=== PATIENT | male | born 1940 | race Caucasian/White ===

== ENCOUNTER 2019-06-20 21:40 | Emergency (ER) | payer MEDICARE ==
[~2019-06-20] VITALS: Ht 180.3 cm; Wt 73.7 kg
[~2019-06-20 21:40] MED LIST: ALBU0.63 NEB; ALPR1TAB7; ATEN50TA8; ATOR-2; CARI350T PO; CITA20TA27; DOCU-28 PO; ESOM40CA2; FLO0.4C PO; FLUT1DIS4 INH; FURO40TA4; HYDR-3972; MORP60TA77; MSC15T PO; POTA8CAP20; SULF1TAB49 PO
[2019-06-20 21:47] VITALS: BP 124/81
[2019-06-20 22:26] LABS: BASOPHILS % (AUTO) 0.3 % (0-1); EOSINOPHILS # (AUTO) 0.1 X10'3 (0-0.9); EOSINOPHILS % (AUTO) 0.6 % (0-6); HEMATOCRIT 41.3 % (42.0-52.0); HEMOGLOBIN 14.5 g/dl (14.0-17.9); LYMPHOCYTES # (AUTO) 1.9 X10'3 (1.1-4.8); MEAN CORPUSCULAR HEMOGLOBIN 33.6 PG (27.0-31.0); MEAN PLATELET VOLUME 7.8 FL (7.4-10.4); MONOCYTES # (AUTO) 0.5 X10'3 (0-0.9); MONOCYTES % (AUTO) 5.6 % (2-12); NEUTROPHILS % (AUTO) 73.5 % (42-75); PLATELET COUNT 192 X10'3 (140-440); RED BLOOD COUNT 4.31 X10'6 (4.70-6.10); RED CELL DISTRIBUTION WIDTH 13.2 % (11.5-14.5); WHITE BLOOD COUNT 9.5 X10'3 (4.5-11.0)
[2019-06-20 22:33] LABS: ALANINE AMINOTRANSFERASE 22 U/L (12-78); ALBUMIN 3.6 G/DL (3.4-5.0); ALBUMIN/GLOBULIN RATIO 0.9 (1.1-1.5); ALKALINE PHOSPHATASE 115 IU/L (46-116); ANION GAP 6 (8-16); ASPARTATE AMINO TRANSFERASE 17 U/L (10-37); BILIRUBIN,TOTAL 0.8 MG/DL (0.1-1.0); BLOOD UREA NITROGEN 11 MG/DL (7-18); BUN/CREATININE RATIO 12.5 (5.4-32.0); CALCIUM 9.5 MG/DL (8.5-10.1); CHLORIDE 95 MMOL/L (99-107); CREATININE 0.88 MG/DL (0.60-1.10); GLUCOSE 103 MG/DL (70-104); POTASSIUM 3.4 MMOL/L (3.5-5.1); SODIUM 134 MMOL/L (135-145); TOTAL CARBON DIOXIDE 33.2 MMOL/L (24-32); TOTAL PROTEIN 7.6 G/DL (6.4-8.2); eGFR 84 ML/MIN
[2019-06-20 23:25] LABS: CLARITY,URINE SLIGHTLY CLOUDY (Clear); COLOR,URINE YELLOW (Yellow); GLUCOSE, URINE NEGATIVE (Neg); KETONES,URINE NEGATIVE (Neg); LEUKOCYTE ESTERASE ,URINE MODERATE (Neg); NITRITES, URINE POSITIVE (Neg); OCCULT BLOOD,URINE TRACE-INTACT (Neg); PROTEIN,URINE NEGATIVE (Neg); UROBILINOGEN,URINE 0.2 E.U/dL (0.2-1.0)
[2019-06-20 23:32] LABS: UA COLLECTION TYPE CLN CATCH MIDSTREAM
[2019-06-20 23:33] LABS: BACTERIA,URINE 4+ /HPF (Neg); RBC,URINE 0-2 /HPF (0-2); SQUAMOUS EPITHELIAL CELL,UR FEW /LPF (FEW); WBC CLUMPS,URINE FEW /HPF (NEGATIVE)
[2019-06-20] MEDS ORDERED: CefTRIAXone 2gm/D5W 50ml 50 ML IV ONE (23:40)
[2019-06-21] MEDS ORDERED: normal saline 1000ML IV soln IVB ONE (00:15)
[2019-06-21] MEDS ORDERED: magnesium citrate 296ml oral solution PO ONE (00:15)
[2019-06-21] MEDS ORDERED: CEPH-572 PO (00:47)
[2019-06-22] MEDS ORDERED: CEPH-572 PO (10:49)
--- NOTE | 2019-06-22 10:52 | NUR ---
PT CAME IN STATING THAT HE NEVER RECEIVED HIS RX FOR UTI SYMPTOMS AND THAT IT WAS NOT CALLED INTO HIS PHARMACY. EXPLAINED TO PT THAT WE DO NOT CALL IN RX AND THAT IT WAS MOST LIKELY ATTACHED TO HIS DC PAPERS. PT INSISTS THAT HE EVER RECEIVED DC PAPERS. DR MACIAS REPRINTED THE PT'S RX, AND ATTEMPTED TO GIVE IT TO THE PT BUT THE PT WAS NOT IN THE ER LOBBY OR OUT SIDE. CALL WAS MADE TO PT'S PHONE # AND INFORMED THAT A NEW RX WAS AT THE ADMITTING DESK SHOULD HE LIKE TO RETURN AND GET IT.
== END 2019-06-21 01:54 | disposition home or self-care (01) ==
LOC: ER 21:41
DX: N39.0 Urinary tract infection, site not specified (principal); K59.00 Constipation, unspecified; I71.4 Abdominal aortic aneurysm, without rupture; I25.10 Atherosclerotic heart disease of native coronary artery without angina pectoris; E78.00 Pure hypercholesterolemia, unspecified; I10 Essential (primary) hypertension; J44.9 Chronic obstructive pulmonary disease, unspecified; K21.9 Gastro-esophageal reflux disease without esophagitis; G89.29 Other chronic pain; F41.9 Anxiety disorder, unspecified; F10.99 Alcohol use, unspecified with unspecified alcohol-induced disorder; F17.210 Nicotine dependence, cigarettes, uncomplicated; Z95.1 Presence of aortocoronary bypass graft; Z98.890 Other specified postprocedural states; Z88.5 Allergy status to narcotic agent; Z88.8 Allergy status to other drugs, medicaments and biological substances; Z79.899 Other long term (current) drug therapy; Y90.9 Presence of alcohol in blood, level not specified
CPT/HCPCS: 36415; 74176; 80053; 81001; 85025; 85610; 87077; 87088; 87186; 96365; 99284; J0696; J7030; 99283

== ENCOUNTER 2021-06-16 10:56 | Inpatient (IN) | payer MEDICARE, OTHER ==
[~2021-06-16] VITALS: Ht 177.8 cm; Wt 59.1 kg
[~2021-06-16 10:56] MED LIST changes: +CEPH-572 PO
[2021-06-16 12:44] LABS: CLARITY,URINE CLEAR (Clear); GLUCOSE, URINE NEGATIVE (Neg); KETONES,URINE TRACE mg/dl (Neg); LEUKOCYTE ESTERASE ,URINE NEGATIVE (Neg); NITRITES, URINE NEGATIVE (Neg); OCCULT BLOOD,URINE NEGATIVE (Neg); PH,URINE 5.5 (4.8-8.0); PROTEIN,URINE TRACE mg/dl (Neg)
[2021-06-16 12:48] LABS: COLOR,URINE DARK YELLOW (Yellow); UA COLLECTION TYPE FOLEY CATH
[2021-06-16 12:52] LABS: AMORPHOUS URATES 1+; BACTERIA,URINE NONE SEEN /HPF (Neg); RBC,URINE NONE SEEN /HPF (0-2); RENAL CELLS, URINE FEW /HPF; SQUAMOUS EPITHELIAL CELL,UR NONE SEEN /LPF (FEW); WBC,URINE 0-4 /HPF (0-4)
[2021-06-16 12:53] LABS: FINE GRANULAR CAST 0-3 /LPF (NEGATIVE); HYALINE CASTS 0-3 /LPF (NEGATIVE); MUCUS STRANDS MODERATE /LPF (Neg)
[2021-06-16 12:56] LABS: BASOPHILS % (AUTO) 0 % (0-1); EOSINOPHILS % (AUTO) 0.1 % (0-6); HEMOGLOBIN 13.7 g/dl (14.0-17.9); LYMPHOCYTES # (AUTO) 0.3 X10'3 (1.1-4.8); LYMPHOCYTES % (AUTO) 4.4 % (21-51); MEAN CORPUSCULAR HEMOGLOBIN 33.8 PG (27.0-31.0); MEAN CORPUSCULAR HGB CONC 33.4 g/dL (33.0-36.5); MEAN CORPUSCULAR VOLUME 101.3 FL (78-98); MONOCYTES # (AUTO) 0.3 X10'3 (0-0.9); MONOCYTES % (AUTO) 3.9 % (2-12); NEUTROPHILS # (AUTO) 6.3 X10'3 (1.8-7.7); NEUTROPHILS % (AUTO) 91.6 % (42-75); PLATELET COUNT 245 X10'3 (140-440); RED BLOOD COUNT 4.05 X10'6 (4.70-6.10); RED CELL DISTRIBUTION WIDTH 14.6 % (11.5-14.5); WHITE BLOOD COUNT 6.9 X10'3 (4.5-11.0)
[2021-06-16 13:15] LABS: ALANINE AMINOTRANSFERASE 17 U/L (12-78); ALBUMIN 2.8 G/DL (3.4-5.0); ALBUMIN/GLOBULIN RATIO 0.7 (1.1-1.5); ALKALINE PHOSPHATASE 97 IU/L (46-116); ANION GAP 5 (8-16); ASPARTATE AMINO TRANSFERASE 17 U/L (10-37); BLOOD UREA NITROGEN 21 MG/DL (7-18); BUN/CREATININE RATIO 25.3 (5.4-32.0); CALCIUM 9.2 MG/DL (8.5-10.1); CHLORIDE 99 MMOL/L (99-107); CREATININE 0.83 MG/DL (0.60-1.10); GLUCOSE 91 MG/DL (70-104); MAGNESIUM 2.1 MG/DL (1.5-2.4); PHOSPHORUS 2.1 MG/DL (2.3-4.5); SODIUM 143 MMOL/L (135-145); TOTAL CARBON DIOXIDE 38.6 MMOL/L (24-32); eGFR 89 ML/MIN
[2021-06-16 13:22] LABS: POTASSIUM 2.6 MMOL/L (3.5-5.1)
[2021-06-16] MEDS ORDERED: POTASSIUM BICARB 20meq eff tab 20 MEQ TABLET.EFF PO SCH (13:30)
--- NOTE | 2021-06-16 13:54 | NUR ---
[facility]
[2021-06-16] MEDS ORDERED: mag hydrox/Alum hydrox/simeth 30ml oral suspension PO PRN (14:20)
[2021-06-16] MEDS ORDERED: albuterol 2.5 MG/3 ML nebule NEB PRN (14:20)
[2021-06-16] MEDS ORDERED: ipratropium/albuterol 3ml nebule NEB PRN (14:20)
[2021-06-16] MEDS ORDERED: ondansetron/PF 4mg/2ml inj IV PRN (14:20)
[2021-06-16] MEDS ORDERED: acetaminophen 325mg tablet PO PRN (14:20)
[2021-06-16] MEDS ORDERED: metoclopramide 5 mg/ml inj IV PRN (14:20)
[2021-06-16] MEDS ORDERED: hyoscyamine 0.125mg TAB.SUBL SL PRN (14:50)
[2021-06-16] MEDS ORDERED: LORazepam 2 mg/ml vial IV PRN ×2 (14:50)
[2021-06-16] MEDS ORDERED: HYDROmorphone inj. 0.5 MG/0.5 ML DISP.SYRIN IV PRN (14:50)
[2021-06-16] MEDS ORDERED: HYDROmorphone 1 mg/ml syringe IV PRN (14:50)
--- NOTE | 2021-06-16 15:30 | NUR ---
Per Dr. Felix said okay to leave out iv.
[2021-06-16] MEDS: ALPRAZolam 0.5mg tablet PO SCH ×2 (16:22→19:52)
[2021-06-16] MEDS: morphine 10mg/0.5ml (conc. morphine) oral syringe PO PRN ×2 (16:22→19:53)
[2021-06-16] MEDS: docusate sod 100mg capsule PO SCH (19:53)
--- NOTE | 2021-06-16 20:54 | NUR ---
REPORT GIVEN TO GENTRY SPARKS, REPORT ACCEPTED.
[2021-06-16 21:10] VITALS: BP 97/63
[2021-06-17] MEDS: ALPRAZolam 0.5mg tablet PO SCH ×7 (00:08→19:54)
[2021-06-17] MEDS: morphine 10mg/0.5ml (conc. morphine) oral syringe PO PRN ×9 (04:16→22:26)
--- NOTE | 2021-06-17 06:36 | NUR ---
Patient in room [facility]TH[facility] 4007. I have received report from Whitney SPARKS and had the opportunity to ask questions and assume patient care.
[2021-06-17] MEDS: docusate sod 100mg capsule PO SCH ×2 (08:00→20:00)
[2021-06-17 10:17] VITALS: BP 86/58
--- NOTE | 2021-06-17 11:27 | NUR ---
Malnutrition consult re: "Pt in FTT". Noted pt documented as A/O x 1 and confused, unable to obtain information from pt. Most recent scaled wt in EMR is 73.3 kg taken 04/05/17 with a standing scale, current wt is 59.09 kg however is not scaled. Per ED report pt lived with a roommate who said patient has decreased oral intake and has been unable to take care of himself. Pt appears cachectic per ED report and with rigid muscle strength per physical assessment. Pt currently meets criteria for malnutrition. No nutrition intervention to be implemented as patient's code status is DNR with comfort care. Noted pt with a low Art of 10. Per physical assessment pt with no edema though with a large decubitus ulcer to sacrum. Wound care has been consulted, pending assessment. Will continue to follow per LOS given current code status. Recommendations: 1) Bowel care per comfort care measures Addendum: 06/17/21 at [address] Amended: Links added.
--- NOTE | 2021-06-17 17:03 | NUR ---
Patient has periods where he is more alert and periods where he is more somulent. I was able to administer his 1200 oral dose of xanax but not the 0800 nor 1600 due to his somulence and concern for swallowing safety.
--- NOTE | 2021-06-17 18:45 | NUR ---
Problems reprioritized. Patient report given, questions answered & plan of care reviewed with Whitney SPARKS.
--- NOTE | 2021-06-18 00:15 | NUR ---
Problems reprioritized. Patient report given, questions answered & plan of care reviewed with BRIDGER Campos.
--- NOTE | 2021-06-18 00:30 | NUR ---
Took over care of pt at this time from Whitney SPARKS, report was given to me.
[2021-06-18] MEDS: morphine 10mg/0.5ml (conc. morphine) oral syringe PO PRN ×6 (00:53→17:45)
--- NOTE | 2021-06-18 01:08 | NUR ---
reviewed and agree with SRN assessment
[2021-06-18] MEDS: ALPRAZolam 0.5mg tablet PO SCH ×6 (04:00→21:31)
--- NOTE | 2021-06-18 06:20 | NUR ---
Problems reprioritized. Patient report given, questions answered & plan of care reviewed with Stephanie SPARKS.
--- NOTE | 2021-06-18 06:54 | NUR ---
Patient in room [facility]TH[facility] 4007. I have received report from Beth SPARKS and had the opportunity to ask questions and assume patient care.
[2021-06-18] MEDS: docusate sod 100mg capsule PO SCH ×2 (08:00→20:00)
[2021-06-18 15:56] VITALS: BP 90/63
[2021-06-19] MEDS: morphine 10mg/0.5ml (conc. morphine) oral syringe PO PRN ×4 (00:21→23:09)
[2021-06-19] MEDS: ALPRAZolam 0.5mg tablet PO SCH ×6 (01:16→19:56)
--- NOTE | 2021-06-19 06:30 | NUR ---
Patient in room [facility]TH[facility] 4007. I have received report from Belem RN and had the opportunity to ask questions and assume patient care.
[2021-06-19] MEDS: docusate sod 100mg capsule PO SCH ×2 (07:27→20:00)
[2021-06-19 18:00] VITALS: BP 106/67
--- NOTE | 2021-06-19 18:38 | NUR ---
Problems reprioritized. Patient report given, questions answered & plan of care reviewed with Belem SPARKS.
[2021-06-20] MEDS: ALPRAZolam 0.5mg tablet PO SCH ×6 (00:15→20:13)
--- NOTE | 2021-06-20 06:48 | NUR ---
Patient in room [facility]TH[facility] 4007. I have received report from BRIDGER Patricia and had the opportunity to ask questions and assume patient care.
[2021-06-20] MEDS: docusate sod 100mg capsule PO SCH ×2 (08:00→20:00)
[2021-06-20 11:00] VITALS: BP 123/72
[2021-06-20] MEDS: morphine 10mg/0.5ml (conc. morphine) oral syringe PO PRN ×3 (11:44→20:18)
[2021-06-20 18:00] VITALS: BP 130/110
--- NOTE | 2021-06-20 19:17 | NUR ---
Patient in room [facility]. I have received report from BRIDGER Camacho and had the opportunity to ask questions and assume patient care.
--- NOTE | 2021-06-20 19:29 | NUR ---
Problems reprioritized. Patient report given, questions answered & plan of care reviewed with Kaleb.
[2021-06-21] MEDS: morphine 10mg/0.5ml (conc. morphine) oral syringe PO PRN ×4 (01:35→16:53)
[2021-06-21] MEDS: ALPRAZolam 0.5mg tablet PO SCH ×6 (04:29→20:18)
--- NOTE | 2021-06-21 06:21 | NUR ---
Problems reprioritized. Patient report given, questions answered & plan of care reviewed with BRIDGER Camacho.
--- NOTE | 2021-06-21 06:42 | NUR ---
Patient in room [facility]. I have received report from BRIDGER Hoover and had the opportunity to ask questions and assume patient care.
[2021-06-21 07:00] VITALS: BP 107/72
[2021-06-21] MEDS: docusate sod 100mg capsule PO SCH ×2 (07:12→20:00)
[2021-06-21 11:00] VITALS: BP 112/55
--- NOTE | 2021-06-21 14:06 | NUR ---
PRESSURE ULCER EDUCATION: DEFINITION: A pressure ulcer is an area of skin that breaks down when you stay in one position too long. The constant pressure against the skin reduces the blood flow to that area and the affected tissue dies. CAUSES: "Being bedridden or in a wheelchair "Fragile skin "Having a chronic condition, such as diabetes or vascular disease "Inability to move certain parts of your body without assistance "Older age "Incontinence of urine or stool SYMPTOMS: "A reddened area that DOES NOT turn white when pressed on - this can be the beginning of a pressure ulcer "A blister, deep sore or a crater - these can be advanced pressure ulcers FIRST AID: "Relieve the pressure on this area "Keep the area clean and dry "Call your primary doctor if you see any of the above symptoms "DO NOT massage the area "DO NOT use a donut shaped or ring shaped pillow- these actually interfere with the blood flow and cause complications PREVENTION: "Check for pressure ulcers everyday "Change position at least every two hours to relieve pressure "Use items that help relieve pressure- pillows, sheepskin, foam padding, and powders. "Keep skin clean and dry "Eat healthy well balanced meals "Exercise daily IF YOU SEE ANY OF THESE SYMPTOMS WHILE IN THE HOSPITAL - TELL YOUR NURSE IMMEDIATELY. IF YOU SEE ANY OF THESE SYMPTOMS WHILE AT HOME OR HAVE ANY QUESTIONS OR CONCERNS ABOUT PRESSURE ULCERS - CALL YOUR PRIMARY DOCTOR IMMEDIATELY. Addendum: 06/21/21 at 1406 by Kalpana Blake RN Amended: Links added.
[2021-06-21 18:00] VITALS: BP 148/73
--- NOTE | 2021-06-21 19:00 | NUR ---
Patient in room [facility]. I have received report from CHELA SPARKS and had the opportunity to ask questions and assume patient care.
--- NOTE | 2021-06-21 19:14 | NUR ---
Problems reprioritized. Patient report given, questions answered & plan of care reviewed with BRIDGER Arechiga.
[2021-06-22] MEDS: ALPRAZolam 0.5mg tablet PO SCH ×6 (00:16→20:49)
[2021-06-22] MEDS: morphine 10mg/0.5ml (conc. morphine) oral syringe PO PRN ×6 (00:17→23:26)
--- NOTE | 2021-06-22 06:47 | NUR ---
Problems reprioritized. Patient report given, questions answered & plan of care reviewed with JL SPARKS.
--- NOTE | 2021-06-22 06:51 | NUR ---
Patient in room [facility] 359. I have received report from Geni SPARKS and had the opportunity to ask questions and assume patient care.
[2021-06-22 07:30] VITALS: BP 87/44
[2021-06-22] MEDS: docusate sod 100mg capsule PO SCH ×2 (09:07→20:49)
[2021-06-22 18:00] VITALS: BP 100/61
--- NOTE | 2021-06-22 18:33 | NUR ---
Problems reprioritized. Patient report given, questions answered & plan of care reviewed with Kiko SPARKS.
--- NOTE | 2021-06-22 19:39 | NUR ---
I have received report from BRIDGER Noble and had the opportunity to ask questions and assume patient care.
[2021-06-22] MEDS: lactose-reduced food (Ensure High Protein) 237ml bottle PO SCH (20:00)
[2021-06-23] MEDS: ALPRAZolam 0.5mg tablet PO SCH ×6 (04:00→20:35)
[2021-06-23] MEDS: morphine 10mg/0.5ml (conc. morphine) oral syringe PO PRN ×3 (05:11→20:45)
--- NOTE | 2021-06-23 06:45 | NUR ---
Problems reprioritized. Patient report given, questions answered & plan of care reviewed with BRIDGER Lucas.
--- NOTE | 2021-06-23 06:50 | NUR ---
Patient in room [facility]. I have received report from Jaida SPARKS with Shayy SPARKS and had the opportunity to ask questions and assume patient care.
--- NOTE | 2021-06-23 06:59 | NUR ---
Patient in room [facility]. I have received report from Kiko SPARKS and had the opportunity to ask questions and assume patient care.
[2021-06-23] MEDS: docusate sod 100mg capsule PO SCH ×2 (07:52→20:34)
[2021-06-23 08:00] VITALS: BP 107/64
[2021-06-23] MEDS: lactose-reduced food (Ensure High Protein) 237ml bottle PO SCH ×2 (08:00→20:35)
--- NOTE | 2021-06-23 11:23 | NUR ---
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 No nutrition intervention to be implemented at this time as pt continues to be DNR with comfort care, though pt is now receiving Ensure High Protein BID per MD request. Noted patient was on a pureed diet with 0-25% PO intake however diet order got completed upon ordering ONS. Attempted TC to RN however RN unavailable, message left with community service representative. LB 06/22. Will continue to follow per LOS. Recommendations: 1) Ensure High Protein BID per MD 2) Bowel care per comfort care measures Addendum: 06/23/21 at [address] Amended: Links added.
[2021-06-23 18:00] VITALS: BP 96/71
--- NOTE | 2021-06-23 18:25 | NUR ---
Problems reprioritized. Patient report given, questions answered & plan of care reviewed with Geni RN and Shayy SPARKS.
--- NOTE | 2021-06-23 18:30 | NUR ---
Patient in room [facility] 359. I have received report from Geni SPARKS and had the opportunity to ask questions and assume patient care.
--- NOTE | 2021-06-23 18:41 | NUR ---
Patient in room [facility]. I have received report from KHANH SPARKS and had the opportunity to ask questions and assume patient care.
--- NOTE | 2021-06-23 20:30 | NUR ---
Don Barnhart called and spoke with pt on the phone, Pt did well carrying on conversation with him. Addendum: 06/23/21 at 2030 by Mary Beth Lawrence RN Amended: Links added.
[2021-06-24] MEDS: ALPRAZolam 0.5mg tablet PO SCH ×6 (00:06→20:44)
[2021-06-24] MEDS: morphine 10mg/0.5ml (conc. morphine) oral syringe PO PRN ×6 (00:07→23:43)
--- NOTE | 2021-06-24 06:41 | NUR ---
Problems reprioritized. Patient report given, questions answered & plan of care reviewed with SAUL SPARKS.
--- NOTE | 2021-06-24 06:55 | NUR ---
Patient in room [facility] 359. I have received report from antoni salazar and had the opportunity to ask questions and assume patient care.
[2021-06-24 07:00] VITALS: BP 87/60
[2021-06-24] MEDS: docusate sod 100mg capsule PO SCH ×2 (08:30→20:45)
[2021-06-24] MEDS: lactose-reduced food (Ensure High Protein) 237ml bottle PO SCH ×2 (08:41→20:00)
[2021-06-24 18:00] VITALS: BP 96/71
--- NOTE | 2021-06-24 18:12 | NUR ---
Problems reprioritized. Patient report given, questions answered & plan of care reviewed with PRUDENCE RN.
--- NOTE | 2021-06-24 18:44 | NUR ---
Patient in room [facility] 359. I have received report from MILANA SPARKS and had the opportunity to ask questions and assume patient care.
[2021-06-25] MEDS: morphine 10mg/0.5ml (conc. morphine) oral syringe PO PRN ×8 (01:08→23:25)
[2021-06-25] MEDS: ALPRAZolam 0.5mg tablet PO SCH ×6 (01:08→21:40)
--- NOTE | 2021-06-25 06:30 | NUR ---
Problems reprioritized. Patient report given, questions answered & plan of care reviewed with JHONY SPARKS.
--- NOTE | 2021-06-25 06:39 | NUR ---
I have received report from Geni RN and had the opportunity to ask questions and assume patient care.
[2021-06-25] MEDS: docusate sod 100mg capsule PO SCH ×2 (07:33→20:00)
[2021-06-25 08:00] VITALS: BP 104/67
[2021-06-25] MEDS: lactose-reduced food (Ensure High Protein) 237ml bottle PO SCH ×2 (08:00→20:27)
--- NOTE | 2021-06-25 12:05 | NUR ---
Patient refusing pictures, in too much pain and yells out "No, stop it, don't be sorry just stop it, no more." One picture taken of patients coccyx only. Dressing changed.
--- NOTE | 2021-06-25 18:30 | NUR ---
Patient in room [facility]. I have received report from JHONY and had the opportunity to ask questions and assume patient care. ASSUMED CARE OF PT WITH RN STUDENT PENNY Terrazas
[2021-06-25 19:00] VITALS: BP 85/60
[2021-06-26] MEDS: morphine 10mg/0.5ml (conc. morphine) oral syringe PO PRN ×6 (02:04→20:36)
[2021-06-26] MEDS: ALPRAZolam 0.5mg tablet PO SCH ×6 (03:32→20:28)
--- NOTE | 2021-06-26 06:01 | NUR ---
Student documentation: I have reviewed and agree with all interventions, assessments performed and documented by PENNY Norman Medication Administration: For this medication-pass time frame, all medication were reviewed, dispensed, administered and documented per hospital policy by PENNY Terrazas
--- NOTE | 2021-06-26 06:22 | NUR ---
Problems reprioritized. Patient report given, questions answered & plan of care reviewed with JHONY.
[2021-06-26 08:00] VITALS: BP 91/52
[2021-06-26] MEDS: lactose-reduced food (Ensure High Protein) 237ml bottle PO SCH ×2 (08:00→20:25)
[2021-06-26] MEDS: docusate sod 100mg capsule PO SCH ×2 (08:44→20:28)
--- NOTE | 2021-06-26 14:50 | NUR ---
Student documentation: I have reviewed all interventions, assessments performed and documentation by Sheryl ROGERS from [facility] program. Student Medication Administration: For all medication-pass' in the time frame of 4059-3135, all medication were reviewed, dispensed, administered and documented per hospital policy by Sheryl ROGERS from [facility] program.
[2021-06-26 19:15] VITALS: BP 102/62
[2021-06-26 20:00] VITALS: BP 102/62
[2021-06-27] MEDS: ALPRAZolam 0.5mg tablet PO SCH ×4 (04:17→12:41)
--- NOTE | 2021-06-27 06:55 | NUR ---
Patient in room [facility]. I have received report from becca salazar and had the opportunity to ask questions and assume patient care.
--- NOTE | 2021-06-27 06:57 | NUR ---
Problems reprioritized. Patient report given, questions answered & plan of care reviewed with AIDE. Addendum: 06/27/21 at 0658 by Gene Ocampo RN Amended: Links added.
[2021-06-27 07:00] VITALS: BP 93/62
[2021-06-27] MEDS: docusate sod 100mg capsule PO SCH (08:26)
[2021-06-27] MEDS: lactose-reduced food (Ensure High Protein) 237ml bottle PO SCH (08:27)
--- NOTE | 2021-06-27 13:10 | NUR ---
patient disorientated at times able to reorientate to know self . pictures taken of wounds and skin tears to arms and back and sacrum. REPORT CALLED TO Stephanie hoff [facility] .
--- NOTE | 2021-06-27 18:00 | NUR ---
patient transferred to [facility] with [facility] staff in stable condition 1430hrs
== END 2021-06-27 15:29 | DRG 641 ==
LOC: ER 10:56 → ED HOLD 14:39 → ORTHO 4S 21:05 → SUR 3N 06-20 10:30
PROVIDERS: ADMIT Family Medicine; ATTEND Family Medicine
DX: R62.7 Adult failure to thrive (principal); E87.4 Mixed disorder of acid-base balance; Z68.1 Body mass index [BMI] 19.9 or less, adult; E87.6 Hypokalemia; M54.5 Low back pain; F03.90 Unspecified dementia, unspecified severity, without behavioral disturbance, psychotic disturbance, mood disturbance, and anxiety; Z66 Do not resuscitate; Z51.5 Encounter for palliative care; E78.00 Pure hypercholesterolemia, unspecified; F17.210 Nicotine dependence, cigarettes, uncomplicated; I10 Essential (primary) hypertension; Z96.643 Presence of artificial hip joint, bilateral; F41.9 Anxiety disorder, unspecified; E78.5 Hyperlipidemia, unspecified; G89.29 Other chronic pain; Z20.822 Contact with and (suspected) exposure to COVID-19; K21.9 Gastro-esophageal reflux disease without esophagitis; M54.9 Dorsalgia, unspecified; R63.0 Anorexia; I25.10 Atherosclerotic heart disease of native coronary artery without angina pectoris; J43.9 Emphysema, unspecified; N40.0 Benign prostatic hyperplasia without lower urinary tract symptoms; Z95.1 Presence of aortocoronary bypass graft; Z91.19 Patient's noncompliance with other medical treatment and regimen; Z88.5 Allergy status to narcotic agent; Z88.8 Allergy status to other drugs, medicaments and biological substances; Z79.899 Other long term (current) drug therapy
CPT/HCPCS: 36415; 70450; 71045; 73522; 80053; 81001; 83735; 84100; 85025; 85610; 87081; 87635; 93005; 94760; 99285; G0378